=== PATIENT | male | born 1970 | race American Indian/Alaskan Native ===

== ENCOUNTER 2021-08-23 15:31 | Emergency (ER) | payer SELFPAY ==
[2021-08-23] MEDS ORDERED: PANTOPRAZOLE 40 MG INJ IV STA (15:42)
[2021-08-23] MEDS ORDERED: SODIUM CHLORIDE 0.9% 1000 ML 1,000 ML IV ONE (15:42)
--- NOTE | 2021-08-23 15:42 | Emergency Department Report ---
ED GI Bleed HPI - General Chief complaint: GI Bleed Stated complaint: VOMITING Time Seen by Provider: 08/23/21 15:36 Source: patient, EMS Mode of arrival: Stretcher Limitations: No Limitations - History of Present Illness Initial comments: Chief complaint: Vomiting HPI: This is a 50-year-old male with history of hypertension and daily alcohol use who presents with vomiting with blood-tinged emesis. First responders witnessed under syncopal episode with preceding diaphoresis. He denies chest pain. He denies abdominal pain. He has had stools for several days. Had mild epigastric discomfort last night. MD complaint: blood streaked emesis -: This morning Severity scale (0 -10): 0 Quality: painless Consistency: intermittent Improves with: none Worsens with: none Context: alcohol abuse Associated Symptoms: other (Dark stools) Treatments Prior to Arrival: none - Related Data Home Medications Medication Instructions Recorded Confirmed Last Taken Lisinopril 10 mg PO DAILY 08/23/21 08/23/21 08/23/21 Allergies Allergy/AdvReac Type Severity Reaction Status Date / Time No Known Allergies Allergy Unverified 08/23/21 15:33 ED Review of Systems ROS: Stated complaint: VOMITING Other details as noted in HPI Comment: All other systems reviewed and negative Constitutional: denies: chills, fever, malaise Cardiovascular: denies: chest pain Gastrointestinal: hematemesis, other (Dark stools). denies: abdominal pain, nausea, vomiting Musculoskeletal: denies: back pain ED Past Medical Hx - Past Medical History Previous Medical History?: Yes Hx Hypertension: Yes - Surgical History Past Surgical History?: No - Family History Family history: hypertension - Social History Smoking Status: Never Smoker Substance Use Type: None - Medications Home Medications: Home Medications Medication Instructions Recorded Confirmed Last Taken Type Lisinopril 10 mg PO DAILY 08/23/21 08/23/21 08/23/21 History ED Physical Exam - General Limitations: No Limitations General appearance: alert, in no apparent distress - Head Head exam: Present: atraumatic, normocephalic - Eye Eye exam: Present: normal appearance - ENT ENT exam: Present: mucous membranes moist - Neck Neck exam: Present: normal inspection, full ROM - Respiratory Respiratory exam: Present: normal lung sounds bilaterally. Absent: respiratory distress, wheezes, rales, rhonchi - Cardiovascular Cardiovascular Exam: Present: regular rate, normal rhythm, normal heart sounds. Absent: systolic murmur, diastolic murmur, rubs, gallop - GI/Abdominal GI/Abdominal exam: Present: soft, normal bowel sounds. Absent: distended, tenderness, guarding, rebound - Rectal Rectal exam: Present: normal rectal tone, black stool, other (Black thick soupy stool) - Extremities Exam Extremities exam: Present: normal inspection - Neurological Exam Neurological exam: Present: alert, oriented X3 - Psychiatric Psychiatric exam: Present: normal affect, normal mood - Skin Skin exam: Present: warm, dry, intact, normal color. Absent: rash ED Course Vital Signs 08/23/21 08/23/21 08/23/21 15:33 15:47 16:11 Temperature 97.7 F 97.9 F Pulse Rate 88 95 H 100 H Respiratory 18 16 18 Rate Blood Pressure Blood Pressure 106/72 108/80 104/72 [Left] O2 Sat by Pulse 99 100 100 Oximetry 08/23/21 16:15 Temperature 97.9 F Pulse Rate 100 H Respiratory 18 Rate Blood Pressure 104/72 Blood Pressure [Left] O2 Sat by Pulse 100 Oximetry ED Medical Decision Making - Lab Data Result diagrams: 08/23/21 15:57 08/23/21 15:57 - EKG Data -: EKG Interpreted by Tn - EKG Data 08/23/21 15:58 EKG obtained by EMS [id number] EKG interpreted by ks Sinus tachycardia rate 120 bpm normal axis normal intervals enlarged P waves in the inferior leads no ST elevation nonspecific T wave pattern - Medical Decision Making Upper GI bleed with melena on exam. Protonix infusion and Protonix bolus given. Acute prerenal kidney injury evident with elevated BUN. I consulted Dr. James printing grey cloth tender. Patient admitted to the hospitalist service in stable condition. Critical care attestation.: If time is entered above; I have spent that time in minutes in the direct care of this critically ill patient, excluding procedure time. ED Disposition Clinical Impression: Acute upper GI bleed Disposition: ADMITTED INPATIENT Is pt being admited?: Yes Does the pt Need Aspirin: No Condition: Stable Forms: Accompanied Note
[2021-08-23] MEDS ORDERED: ONDANSETRON 4 MG/2 ML INJ IV ONE (15:43)
[2021-08-23 16:09] LABS: Basophils % (Auto) 0.3 % (0.0-1.8); Eosinophils % (Auto) 0.1 % (0.0-4.3); Hematocrit 40.2 % (35.5-45.6); Hemoglobin 13.3 gm/dl (11.8-15.2); Lymphocytes # (Auto) 1.3 K/mm3 (1.2-5.4); Lymphocytes % (Auto) 12.1 % (13.4-35.0); Mean Corpuscular HGB Conc 33 % (32-34); Mean Corpuscular Volume 90 fl (84-94); Monocytes # (Auto) 0.6 K/mm3 (0.0-0.8); Monocytes % (Auto) 5.4 % (0.0-7.3); Platelet Count 224 K/mm3 (140-440); Red Blood Count 4.46 M/mm3 (3.65-5.03); Red Cell Distribution Width 14.8 % (13.2-15.2)
[2021-08-23 16:17] LABS: Partial Thromboplastin Time 25.3 Sec. (24.2-36.6)
[2021-08-23 16:32] LABS: Alanine Aminotransferase 10 units/L (7-56); Albumin 3.9 g/dL (3.9-5); BUN/Creatinine Ratio 35; Blood Urea Nitrogen 35 mg/dL (9-20); Calcium 8.8 mg/dL (8.4-10.2); Hemolysis Index 7
[2021-08-23 16:39] LABS: INR 1.03 (0.87-1.13)
[2021-08-23] MEDS ORDERED: SUCRALFATE 1 GM/10 ML ORAL LIQD PO ONE (18:00)
[2021-08-23] MEDS ORDERED: THIAMINE 100 MG, FOLIC ACID 1 MG, MULTIPLE VITAMIN INJ, ADULT 10 ML in SODIUM CHLORIDE ... IV ONE (18:13)
--- NOTE | 2021-08-23 19:33 | Consultation ---
History of Present Illness - Reason for Consult Consult date: 08/23/21 Requesting physician: LILLY LAUREANO - History of Present Illness 50 YO Male with HTN, ETOH Dependence presents to ED for evaluation. Patient reports "I vomited up some blood". Patient states that he experienced an episode of nausea complicated by multiple dry heaves and vomiting up blood-tinged sputum. EMS was notified and the patient was subsequently transported to [facility] for further care and evaluation of the aforementioned symptoms. The patient was seen and evaluated in the emergency department. All lab and imaging studies reviewed. Patient treated with IV fluid resuscitation therapy, as well as PPI therapy with normalization of symptoms. No blood was evident in the oropharynx. Patient counseled regarding alcohol cessation. Patient medically optimized and back to usual state of health. Patient safely discharged home and instructed to follow-up with primary care physician in 3 to 5 days and to follow-up with GI as needed further care and evaluation. Past History Past Medical History: hypertension Past Surgical History: No surgical history, Other (Reviewed) Social history: single, alcohol abuse. denies: smoking Family history: hypertension Medications and Allergies Allergies Allergy/AdvReac Type Severity Reaction Status Date / Time No Known Allergies Allergy Unverified 08/23/21 15:33 Home Medications Medication Instructions Recorded Confirmed Last Taken Type Folic Acid [Folvite] 1 mg PO QDAY #30 tablet 08/23/21 Unknown Rx Lisinopril 10 mg PO DAILY 08/23/21 08/23/21 08/23/21 History Multivitamin Tab [Multiple Vitamin 1 each PO QDAY #30 tablet 08/23/21 Unknown Rx TAB (Theragran)] Pantoprazole [Protonix TAB] 20 mg PO QDAY #30 tablet. 08/23/21 Unknown Rx Sucralfate [Carafate] 1 gm PO ACHS #240 ml 08/23/21 Unknown Rx Thiamine [Vitamin B-1] 100 mg PO QDAY #30 tablet 08/23/21 Unknown Rx Active Meds: Active Medications Thiamine HCl 100 mg/ Folic Acid 1 mg/ Multivitamins/Minerals 10 ml/ Sodium Chloride 1,011.2 mls @ 250 mls/hr IV ONCE ONE Stop: 08/23/21 22:15 Last Admin: 08/23/21 18:32 Dose: 250 mls/hr Review of Systems Constitutional: no weight loss, no weight gain, no fever, no chills Ears, nose, mouth and throat: no ear pain, no tinnitis, no nasal congestion, no sinus pressure Cardiovascular: no chest pain, no orthopnea, no rapid/irregular heart beat, no edema, no syncope Respiratory: no cough, no excessive sputum, no shortness of breath, no dyspnea on exertion Gastrointestinal: abdominal pain, nausea, vomiting, other (Vomiting of blood), no coffee ground emesis, no BRBPR, no melena, no loss of appetite, no early satiety, no heartburn, no belching Genitourinary Male: no hematuria, no flank pain, no discharge, no urinary frequency, no urinary hesitancy, no nocturia Rectal: no pain Musculoskeletal: no neck stiffness, no arm numbness/tingling Integumentary: no rash, no redness, no wounds, no jaundice Neurological: no head injury, no paralysis, no weakness, no parathesias, no numbness, no tingling Psychiatric: no anxiety, no sleep disturbances, no insomnia, no change in appetite, no change in libido Endocrine: no heat intolerance, no polyphagia, no excessive thirst, no polyuria, no excessive sweating, no weight change Hematologic/Lymphatic: no easy bruising, no easy bleeding, no lymphedema Allergic/Immunologic: no urticaria, no allergic rhinitis Exam - Constitutional Vitals: Temp Pulse Resp BP Pulse Ox 97.9 F 100 H 18 104/72 100 08/23/21 16:15 08/23/21 16:15 08/23/21 16:15 08/23/21 16:15 08/23/21 16:15 General appearance: Present: no acute distress, well-nourished - EENT Eyes: Present: PERRL ENT: hearing intact, clear oral mucosa - Neck Neck: Present: supple, normal ROM - Respiratory Respiratory effort: normal Respiratory: bilateral: CTA - Cardiovascular Heart Sounds: Present: S1 & S2. Absent: rub, click - Extremities Extremities: pulses symmetrical, No edema Peripheral Pulses: within normal limits - Abdominal General gastrointestinal: Present: soft, non-tender, non-distended, normal bowel sounds Male genitourinary: Present: normal - Integumentary Integumentary: Present: clear, warm, dry - Musculoskeletal Musculoskeletal: gait normal, strength equal bilaterally - Psychiatric Psychiatric: appropriate mood/affect, intact judgment & insight - Neurologic Neurologic: CNII-XII intact, moves all extremities Results - Labs CBC & Chem 7: 08/23/21 15:57 08/23/21 15:57 Labs: Abnormal lab results 08/23/21 08/23/21 Range/Units 15:57 15:57 Lymph % (Auto) 12.1 L (13.4-35.0) % Seg Neutrophils % 82.1 H (40.0-70.0) % Seg Neutrophils # 8.5 H (1.8-7.7) K/mm3 BUN 35 H (9-20) mg/dL Glucose 122 H (75-100) mg/dL Assessment and Plan - Patient Problems (1) Alcoholic gastritis Current Visit: Yes Status: Acute Plan to address problem: Patient medically optimized with no active bleed at this time. Patient symptoms resolved with supportive care and PPI therapy. Patient initiated on CIWA protocol. Thiamine, folic acid multivitamin daily. Outpatient GI follow-up for further care and evaluation. Patient instructed to follow-up with primary care physician in 3 to 5 days. Patient instructed to undergo all age-appropriate screening test. 35 minutes dedicated to patient discharge and coordination of care.
[2021-08-23 20:09] VITALS: BP 109/60
== END 2021-08-23 20:54 | disposition home or self-care (01) ==
LOC: ED 15:31
DX: K92.2 Gastrointestinal hemorrhage, unspecified (principal); Z79.899 Other long term (current) drug therapy; I10 Essential (primary) hypertension
CPT/HCPCS: 36415; 80053; 82270; 83690; 85025; 85610; 85730; 96361; 96365; 96366; 96375; 99284; C9113; J2405; J3411; J3490; J7030; 80320; Q0162; G0480

== ENCOUNTER 2021-08-29 19:54 | Emergency (ER) | payer SELFPAY ==
[2021-08-29 21:20] VITALS: BP 139/76
== END 2021-08-30 07:34 | disposition left against medical advice (07) ==
LOC: ED 19:54
DX: R51.9 Headache, unspecified (principal); Z53.21 Procedure and treatment not carried out due to patient leaving prior to being seen by health care provider